=== PATIENT | male | born 1950 | race Caucasian/White ===

== ENCOUNTER → 2021-05-18 | Day surgery (SDC) | payer MEDICARE ==
[~2021-05-18] VITALS: Ht 188 cm; Wt 106.6 kg
[~2021-05-18] MED LIST: ACETAMINOPHEN500 M1 PO; FLOMAX0.4 MG PO; GLUCOSA-CHOND-1 EACH PO; GLUCOSAMINE-MS1 EAC4 PO; MVI PO; PRINIVIL10 MG PO; TOPROL XL100 MG PO; [UNRECOGNIZED DRUG - OTHER] PO
[2021-05-18 11:10] LABS: HCT 40.3 % (42.0-52.0); HGB 13.9 g/dl (13.2-18.0); MCH 31.8 pg (25.0-31.0); MCHC 34.5 g/dL (32.0-36.0); MCV 92.2 fL (78.0-100.0); RBC 4.37 M/uL (4.70-6.00); RDW 12.1 % (11.5-14.0); WBC 6.7 K/uL (4.0-10.5)
[2021-05-18 11:33] LABS: BUN/CREAT RATIO (CALC) 15.9 RATIO; CREATININE 0.88 mg/dL (0.67-1.17); POTASSIUM 4.2 mmol/L (3.5-5.1)
== END | disposition home or self-care (01) ==
LOC: FAS 08:56
PROVIDERS: Anesthesiology; Legal Medicine
DX: T84.84XA Pain due to internal orthopedic prosthetic devices, implants and grafts, initial encounter (principal); M17.32 Unilateral post-traumatic osteoarthritis, left knee; G89.18 Other acute postprocedural pain; I48.91 Unspecified atrial fibrillation; I10 Essential (primary) hypertension; Z91.040 Latex allergy status; Z79.899 Other long term (current) drug therapy
CPT/HCPCS: 36415; 73560; 76000; 80048; J0690; J1170; J1885; J2250; J2405; J2550; J2704; J2795; J3010; J7120